=== PATIENT | female | born 2000 | race Caucasian/White ===

== ENCOUNTER 2019-03-08 21:01 | Emergency (ER) | payer MEDICAID, OTHER ==
--- NOTE | 2019-03-08 21:23 | UC ---
Lower Extremity/Ankle HPI - HPI Summary HPI Summary: 18 y/o female presents to the urgent care c/o - History of Current Complaint Stated Complaint: SORE THROAT, CONGESTION, BODY ACHES Time Seen by Provider: 03/08/19 21:20 - Allergies/Home Medications Allergies/Adverse Reactions: Allergies Allergy/AdvReac Type Severity Reaction Status Date / Time morphine Allergy Unknown Verified 03/08/19 21:15 Reaction Details Home Medications: Home Medications Cpm/PE/Dm/Acetaminophen/Guaifn [Tylenol Cold-Flu Day-Nt Caplet] 2 each PO ONCE PRN 03/08/19 [History Confirmed 03/08/19] diphenhydrAMINE HCl [Diphenhydramine HCl] 12.5 mg PO BEDTIME 03/08/19 [History Confirmed 03/08/19] Physical Exam Triage Information Reviewed: Yes Lower Extremity Course/Dx - Differential Dx/Diagnosis Differential Diagnosis/HQI/PQRI: Sprain, Strain, Tendonitis Discharge ED - Discharge Plan
--- NOTE | 2019-03-08 21:24 | UC ---
Throat Pain/Nasal Vel HPI - HPI Summary HPI Summary: 18 y/o female presents to the urgent care c/o nasal congestion w/ yellowish nasal discharge on and off for the past month. Pt w/ Hx of allergies and recurrent sinusitis. Last time she was Tx for a sinus infection was in 2018. She usually do symptomatic treatment, but sometimes symptoms worsen that they can only resolve completely w/ a courses of antibiotic. Symptoms have worsen this past week w/ sore throat and dry cough. She has taken OTC Tylenol, sudafed , Zyrtec w/o any improvement. Sinus pain and DURHAM is 5/10. Pt denies fever , but last night she felt chills, She denies wheezing, dizziness, ear pain, SOB , chest pain, abdominal pain, N/V/D. - History of Current Complaint Stated Complaint: SORE THROAT, CONGESTION, BODY ACHES Time Seen by Provider: 03/08/19 21:20 Hx Obtained From: Patient ?: No Onset/Duration: Gradual Onset, Lasting Weeks - 4 weeks, Still Present, Worse Since - 1 week Severity: Moderate Pain Intensity: 5 Pain Scale Used: 0-10 Numeric Cough: Nonproductive Associated Signs & Symptoms: Positive: Sinus Discomfort, Nasal Discharge - yellowish. Negative: Fever - Epiglottits Risk Factors Epiglottis Risk Factors: Negative - Allergies/Home Medications Allergies/Adverse Reactions: Allergies Allergy/AdvReac Type Severity Reaction Status Date / Time morphine Allergy Unknown Verified 03/08/19 21:15 Reaction Details Home Medications: Home Medications Cpm/PE/Dm/Acetaminophen/Guaifn [Tylenol Cold-Flu Day-Nt Caplet] 2 each PO ONCE PRN 03/08/19 [History Confirmed 03/08/19] diphenhydrAMINE HCl [Diphenhydramine HCl] 12.5 mg PO BEDTIME 03/08/19 [History Confirmed 03/08/19] PMH/Surg Hx/FS Hx/Imm Hx Previously Healthy: Yes Respiratory History: Asthma Other Respiratory History: recurrent sinusitis - Family History Known Family History: Positive: None - Pt deeis FMHX - Social History Occupation: Student Lives: With Family - Immunization History Vaccination Up to Date: Yes Review of Systems All Other Systems Reviewed And Are Negative: Yes Constitutional: Positive: Negative Skin: Positive: Negative Eyes: Positive: Negative ENT: Positive: Sore Throat, Nasal Discharge - yellowish, Sinus Congestion, Sinus Pain/Tenderness, Other - yellowish PND Respiratory: Positive: Cough Cardiovascular: Positive: Negative Gastrointestinal: Positive: Negative Genitourinary: Positive: Negative Motor: Positive: Negative Neurovascular: Positive: Negative Musculoskeletal: Positive: Negative Neurological: Positive: Headache Psychological: Positive: Negative Is Patient Immunocompromised?: No Physical Exam - Summary Physical Exam Summary: Vitals: reviewed General: Well developed, well-nourished female male patient with NAD. Head and face: Normocephalic and atraumatic, Positive tenderness over the frontal and maxillary sinuses.. Eyes: PERRLA, EOMI x 2. Normal conjunctiva. No eye discharge. ENT: Ears and TM with normal limits. Nose: edematous and erythematous nasal mucosa with with yellowish discharge and erythematous mucosa. Pharynx with erythema, no exudate. yellowish PND Neck: Supple, no JVD, no carotid bruits and no lymphadenopathy. Lungs: clear, no rales, no rhonchi, no wheezes. CVS: RRR, S1 and S2 present no murmurs or gallops appreciated. Abdomen: soft nontender with positive bowel sounds. Extremities: no edema noted. Neuro: WNL. Skin: warm and dry Triage Information Reviewed: Yes Throat Pain/Nasal Course/Dx - Course Course Of Treatment: 18 y/o female presents to the urgent care c/o nasal congestion w/ yellowish nasal discharge on and off for the past month. Pt w/ Hx of allergies and recurrent sinusitis. Last time she was Tx for a sinus infection was in 2018. She usually do symptomatic treatment, but sometimes symptoms worsen that they can only resolve completely w/ a courses of antibiotic. Symptoms have worsen this past week w/ sore throat and dry cough. She has taken OTC Tylenol, sudafed , Zyrtec w/o any improvement. Sinus pain and DURHAM is 5/10. Pt denies fever , but last night she felt chills, She denies wheezing, dizziness, ear pain, SOB , chest pain, abdominal pain, N/V/D. Hx obtained. Pt w/ bacterial sinusitis. Rapid strep: negative. Pt with 1 months of intermittent symptoms getting worse. Pt Rx Amoxicillin PO and flonase nasal spray. Advised to continue taking Sudafed PO to alleviate sinus congestion . Discharge instructions explained to Pt. Advised to Return to the clinic or PCP if symptoms do not improve.Pt understood and agreed with plan of care. - Differential Dx/Diagnosis Differential Diagnosis/HQI/PQRI: Laryngitis, Mononucleosis, Otitis Media, Pharyngitis, Sinusitis, Tonsillitis, URI Provider Diagnosis: Acute bacterial sinusitis Discharge ED - Sign-Out/Discharge Documenting (check all that apply): Patient Departure - D/C home All imaging exams completed and their final reports reviewed: No Studies - Discharge Plan Condition: Stable Disposition: HOME Prescriptions: Amoxicillin PO (*) [Amoxicillin 875 MG (*)] 875 mg PO BID #19 tab Fluticasone NASAL SPRAY 50MCG* [Flonase NASAL SPRAY 50MCG*] 2 spray BOTH NARES DAILY #1 btl Patient Education Materials: Sinusitis (ED) Forms: *School Release Referrals: [facility] [place] [facility] [Outside] - 3 Days Additional Instructions: 1- Please increase fluid intake and rest. take full course of antibiotics to avoid resistance. Take yogurts w/ probiotics or Culturelle to protect your GI system. Fist dose given here at the clinic tonight 2-Use Flonase as directed to help drain fluid. Also buy saline drops to clear sinuses 3-Continue taking Sudafed PO to alleviates sinus congestion 4-Please f/u w/ your PCP in 3 days if symptoms do not improve for further management and treatment 5- Rapid strep: negative. - Billing Disposition and Condition Condition: STABLE Disposition: Home
[2019-03-08 21:25] VITALS: BP 122/80
[2019-03-08] MEDS ORDERED: Amoxicillin PO (*) 500 MG CAP PO ONE (21:37)
== END 2019-03-08 21:47 | disposition home or self-care (01) ==
LOC: UCCORT 21:01
DX: J01.90 Acute sinusitis, unspecified (principal); B96.89 Other specified bacterial agents as the cause of diseases classified elsewhere; J45.909 Unspecified asthma, uncomplicated; J02.9 Acute pharyngitis, unspecified; Z88.5 Allergy status to narcotic agent
CPT/HCPCS: 87651; 99202; A9270-GY; G0463